=== PATIENT | male | born 1945 | race Caucasian/White ===

== ENCOUNTER 2021-10-03 13:37 | Emergency (ER) | payer MEDICARE, OTHER ==
[2021-10-03 14:49] LABS: HEMOGLOBIN 18.1 gm/dl (14.0-17.5); RED BLOOD COUNT 5.63 M/UL (4.20-5.50); WHITE BLOOD COUNT 11.7 K/UL (4.5-11.0)
[2021-10-03 15:20] LABS: BUN/CREATININE RATIO 21 (0-10)
[2021-10-03] MEDS ORDERED: ONDANSETRON ODT4 MG SL (20:00)
== END 2021-10-03 20:19 | disposition left against medical advice (07) ==
LOC: ER1 13:37
PROVIDERS: Physician Assistant
DX: E86.0 Dehydration (principal); R53.83 Other fatigue; Z88.2 Allergy status to sulfonamides; E78.5 Hyperlipidemia, unspecified; I10 Essential (primary) hypertension; R68.83 Chills (without fever); I49.3 Ventricular premature depolarization; Z20.822 Contact with and (suspected) exposure to COVID-19
CPT/HCPCS: 0240U; 71045; 80053; 81001; 82550; 82553; 83605; 83735; 83874; 84439; 84443; 84484; 85025; 87040; 87086; 93005; 99285

== ENCOUNTER 2021-10-05 12:47 | Observation (INO) | payer MEDICARE, OTHER ==
[~2021-10-05] VITALS: Ht 182.9 cm; Wt 70.3 kg
[~2021-10-05 12:47] MED LIST: ONDANSETRON ODT4 MG SL
[2021-10-05 14:32] LABS: HEMOGLOBIN 16.6 gm/dl (14.0-17.5); RED BLOOD COUNT 5.26 M/UL (4.20-5.50)
[2021-10-05 14:46] LABS: WHITE BLOOD COUNT 7.1 K/UL (4.5-11.0)
[2021-10-05] MEDS ORDERED: VITAMIN D350 MC3 PO (17:48)
[2021-10-05] MEDS ORDERED: VITAMIN B-121000 MCG PO (17:49)
[2021-10-05] MEDS ORDERED: MAGNESIUM100 MG PO (17:49)
[2021-10-05] MEDS ORDERED: ASPIRIN EC81 MG PO (17:49)
[2021-10-05] MEDS ORDERED: PROBIOTIC1 EAC1 PO (17:50)
[2021-10-05] MEDS ORDERED: IMMUNE SUPPORT PO (17:52)
[2021-10-05] MEDS ORDERED: GARLIC1 EAC1 PO (17:52)
[2021-10-05] MEDS ORDERED: FISH OIL 1,0001 EACH PO (17:52)
[2021-10-05 19:06] LABS: ADENOVIRUS F 40/41 Not Detected (Negative); ASTROVIRUS Not Detected (Negative); CAMPYLOBACTER Not Detected (Negative); CRYPTOSPORIDIUM Not Detected (Negative); E.COLI 0157 Not Detected (Negative); ENTAMOEBA HISTOLYTICA Not Detected (Negative); ENTEROAGGREGATIVE E.COLI (EAEC Not Detected (Negative); ENTEROPATHOGENIC E.COLI (EPEC) Not Detected (Negative); ENTEROTOXIGENIC E.COLI (ETEC) Not Detected (Negative); GIARDIA LAMBLIA Not Detected (Negative); NOROVIRUS GI/GII Not Detected (Negative); PLESIOMONAS SHIGELLOIDES Not Detected (Negative); SALMONELLA Not Detected (Negative); SAPOVIRUS Not Detected (Negative); SHIG/ENTEROINVAS.ECOLI (EIEC) Not Detected (Negative); SHIGA-LIK TOX.PRO.E.COLI (STEC Not Detected (Negative); VIBRIO Not Detected (Negative); VIBRIO CHOLERAE Not Detected (Negative); YERSINIA ENTEROCOLITICA Not Detected (Negative)
[2021-10-06 05:29] LABS: WHITE BLOOD COUNT 5.6 K/UL (4.5-11.0)
[2021-10-06 05:31] LABS: RED BLOOD COUNT 4.5 M/UL (4.20-5.50)
[2021-10-06 13:31] LABS: CLOSTRIDIUM DIFFICILE TOX A/B DETECTED (Negative); ROTOVIRUS A DETECTED (Negative)
[2021-10-07 11:13] LABS: HBSAG SCREEN Negative (Negative); HEP A AB, IGM Negative (Negative); HEP B CORE AB, IGM Negative (Negative); HEP C VIRUS AB <0.1 (0.0-0.9)
== END 2021-10-06 17:14 | disposition home or self-care (01) ==
LOC: ER1 12:47 → CDU 16:44 → CCU 16:44
PROVIDERS: Physician Assistant Medical; ADMIT Internal Medicine
DX: R19.7 Diarrhea, unspecified (principal); R11.10 Vomiting, unspecified; E86.0 Dehydration; E87.6 Hypokalemia; N17.9 Acute kidney failure, unspecified; I10 Essential (primary) hypertension; R79.89 Other specified abnormal findings of blood chemistry; I48.91 Unspecified atrial fibrillation; Z20.822 Contact with and (suspected) exposure to COVID-19; Z88.2 Allergy status to sulfonamides; Z79.82 Long term (current) use of aspirin; Z79.899 Other long term (current) drug therapy
CPT/HCPCS: 36415; 76705; 80053; 80074; 81001; 82962; 83605; 83690; 83735; 85025; 85610; 87324; 87449; 87507; 96374; 96376; 99285; C9113; G0378; J2405; U0002